=== PATIENT | female | born 1980 | race Caucasian/White ===

== ENCOUNTER → 2019-01-10 15:30 | Outpatient (CLI) | payer OTHER, SELFPAY ==
[2019-01-16 20:12] LABS: HPV Reflexed? NOT INDICATED
== END ==
PROVIDERS: Visit Provider Obstetrics & Gynecology
DX: Z12.4 Encounter for screening for malignant neoplasm of cervix (principal)
CPT/HCPCS: 88175; G0145

== ENCOUNTER 2019-11-27 09:01 | Inpatient (IN) | payer OTHER, SELFPAY ==
[2019-11-22 11:41] LABS: Hematocrit 43.3 % (37-47); Mean Corp Hgb Conc 32.3 g/dL (32-36); Mean Corpuscular Hgb 31.9 pg (27.0-32.0); Mean Corpuscular Volume 98.6 fL (81-99); Mean Platelet Vol. 10.4 fl (6.2-12.0); Platelet Count 272 K/mm3 (150-450); RBC Distribution Width CV 12.4 % (11.6-14.6); RBC Distribution Width SD 45.1 fl (35.1-43.9); Red Blood Count 4.39 M/mm3 (4.2-5.4); White Blood Count 4.8 K/mm3 (4.4-11.0)
[2019-11-22 11:49] LABS: Prothrombin Time (Protime)PT. 12.7 SECONDS (11.7-14.9)
[2019-11-22 11:50] LABS: Partial Thromboplast Time 25.6 Seconds (24.1-36.2)
[2019-11-22 12:03] LABS: Internal QC Validated? YES +Cl - CLEAR BKGD; Pregnancy, Serum, hCG Quali. NEGATIVE Negative
[2019-11-22 12:19] LABS: Creatinine, Serum 0.85 mg/dL (0.55-1.02); EST Glomerular Filtration Rate 79 mL/min (>60); Est Glom Filt Rate - Afr Amer 95 mL/min (>60); Thyroid Stim Hormone (TSH) 1.92 uIU/mL (0.358-3.74)
--- NOTE | 2019-11-26 12:54 | PCM.HP.BLA ---
History and Physical Date of Admission: 11/27/19 Surgical History and Physical Makenna Peacock, a 38 year old female 0 0 0 0 0, presents for VINNIE/BS on November 27, 2019 at 11:00. -- Large Symptomatic Uterine Fibroids -- Recent CT Scan with noted Enlarged lobulated uterus with fibroids. Reports she has had low pressure and discomfort for awhile, but thought it was due to her chronic constipation. Enlarged Lobulated Uterus with Fibroids which began 09/25/19. Makenna claims it started suddenly and has been present 09-25-19. It occurs all the time. It is located in the lower abdomen. Makenna characterizes it to be non-radiating. Makenna characterizes the quality lump noted. Severity is moderate and very concerned. Associated signs and symptoms are constipation. Associated signs and symptoms are dysmenorrhea. Additional comments are: CT scan at [facility] showed 8 and 9 cm uterine fibroids and multiple others. FIBROIDS. 4 MEASURED. 1)FUNDAL/RT=4.2 X 4.3 X 5.0CM. 2) AMAURY=8.4 X 5.7 X 6.7CM. 3) RT/CX=4.2 X 3.8 X 4.3CM. 4) ANT/LT=2.2 X 2.0 2.3. MEDICATIONS HISTORY: Patient is also takin. levothyroxine 50 mcg tablet, 1 qd ALLERGIES: NKDA Infections - never had chicken pox! Illnesses - no serious past illnesses Accidents - no injuries of consequence Hospitalizations - None Review of Systems: GENERAL - Denies fever, or chills SKIN - Denies skin changes EYES - Denies visual changes EARS - Denies difficulty hearing NOSE - Denies nasal congestion or bleeding MOUTH - Denies sore throat or difficulty swallowing NECK - Denies pain or swelling RESPIRATORY - Denies shortness of breath or wheezing CARDIOVASCULAR - Denies palpitations or chest pain GASTROINTESTINAL - Denies nausea, vomiting, diarrhea, constipation GENITOURINARY - Denies dysuria, frequency of urination, incontinence of urine MUSCULOSKELETAL - Denies joint or muscle pain NEUROLOGICAL - Denies localized numbness or weakness PSYCHIATRIC - Denies depression or anxiety ENDOCRINE - Denies heat or cold intolerance, weight loss or gain HEMATO-IMMUNOLOGIC - Denies excesive bleeding with cuts SOCIAL HISTORY: Alcohol Use - denies drinking Smoking - denies smoking Diet - no special diet Lifestyle - moderate stress lifestyle and Exercise - minimal Seat Belt Use - always Employer - [employer] Struct[employer] Job Description - Dealer Sales Rep Illicit Drug Use - denies use of street drugs Sexual Activity - Hours Worked - FT Spouse-Sig Other Name - Byran Spouse-Sig Other Occupation - [employer] Children Name(s) - 2 adopted children Control - NONE FAMILY HISTORY: Family history of Diabetes. MENSTRUAL HISTORY: LMP Known?- Approximate-Month KnownAmount/Duration - 4-5 days, Regularity - Regular, Frequency - 28 days, LMP - 10/29/19 PAST PREGNANCIES: Total Pregnancies - 0; Full Term Pregnancies - 0; Premature - 0; Abortions, Induced - 0; Abortions, Spontaneous - 0; Ectopics - 0; Multiple Births - 0; Living Children - 0 SURGICAL HISTORY: 1. NONE PHYSICAL EXAM BP- 112/72 Sitting, Right arm, regular cuff Weight- 117.0 lbs Height- 63 inch BMI:20.77 CONSTITUTIONAL - NAD, well nourished, and well developed SKIN - No rash, lesions, or ulcers HEENT - Normocephalic, PERRLA, EOMI NECK - no nodes, no nuchal rigidity and thyroid normal size and texture LYMPH NODES - Palpation of lymph nodes in neck, axilla and groins within normal limits LUNGS - CTA x2 without wheezes, crackles or rales CARDIAC - Regular rate and rhythm without rubs, murmurs, or gallops ABDOMEN - Without hepatosplenomegaly, distention, masses, rebound, or guarding; normal bowel sounds, no hernias EXTREMITIES - No edema or calf tenderness NEUROLOGICAL - Cranial nerves II-XII grossly intact PSYCHIATRIC - A and O to time, place, person, mood and affect External Genitial Vagina - non-tender without lesions Urethra/Urethral Meatus - non-tender Bladder - non-tender Vagina - vaginal tolliver are pink and moist without loss of rugae and no evidence of atropy Cervix - without cervical motion tenderness and has normal size and features without evident lesions Uterus - enlarged uterus 15 wks Adnexa - clear without massess or tenderness ASSESSMENT/PLAN: 1. Leiomyoma Of Uterus, Unspecified Large and symptomatic especially rectal pressure. Menses heavy. Discussed options for treatment and recommended proceeding with VINNIE/BS given large size. Discussed RBAs and all questions answered. Ovaries visualized on u/s as normal; CT and u/s both strongly suggest these are fibroids.
[2019-11-27] VITALS (11 sets, daily range): BP systolic 95–109; BP diastolic 59–86; PULSE 65–107; RESP 14–16; TEMP 36.4–37.3; O2SAT 93–100; BMI 20.6
--- NOTE | 2019-11-27 | HYST_PTH ---
PATIENT: DIPESH PHELPS LOC: [facility] U#:[id number] AGE/SX: 39/F ROOM: MS319 RE11/27/[address]: Dr. Guanaco Carbajal MD : 1980 BED: 1 DIS: 11/29/2019 SPEC #: [id number] RECD: 11/27/19 13:29 STATUS: ANDREINA REMejia #: [id number] STEWART: 11/27/19 00:[address]: Guanaco Carbajal DEPT: SURGICAL PATHOLOGY RECD BY: Driss Choudhary ENTERED: 11/27/19 13:29 SP TYPE: HYSTERECT OTHR DR: Dr. Gliberto Coronado MD Tissues: Uterus, NOS Procedures: Surgery Specimen Level V HEADER OPERATION: Total abdominal hysterectomy, bilateral salpingectomy PRE-OP DIAGNOSIS: Leiomyoma of uterus TISSUE SUBMITTED: Uterus and bilateral fallopian tubes MICROSCOPIC DIAGNOSIS Uterus and bilateral fallopian tubes, total abdominal hysterectomy and bilateral salpingectomy: Cervix - mild chronic cystic cervicitis. Endometrium - proliferative endometrium. Endometrial polyps - benign endometrial polyps with mildly disordered proliferative endometrium. Myometrium - intramural and subserosal leiomyomas (largest measuring 9 cm in greatest dimension). Bilateral fallopian tubes - no pathologic diagnosis. BEV:linda 11/28/19 MICROSCOPIC DESCRIPTION Slides are reviewed. GROSS DESCRIPTION Received in fixative is one container labeled with the patient's name and designated uterus and bilateral fallopian tubes. The specimen consists of a hysterectomy specimen consisting of uterus with cervix, attached bilateral fallopian tubes and two detached nodular masses. The uterus with cervix and detached nodular masses weighs in aggregate 381 gm. The uterus with cervix measures 10 x 10.5 x 6 cm. Multiple subserosal nodular masses are noted. Focal areas of defect with sutures are noted at the anterior and posterior surface most likely site of detached nodular masses, The masses measure 6.5 x 5 x 4 cm and 9 x 7 x 6 cm. The rest of the serosal surface is montalvo, glistening and unremarkable. The ectocervical mucosa is unremarkable. The external os is slit-like in contour. The endocervical canal measures 3.5 cm in length and the endocervical mucosa is montalvo, glistening and unremarkable. The triangular endometrial cavity measures 5 cm in length and up to 3 cm in width. Two endometrial polyps are noted, each measuring 1 cm in greatest dimension. The rest of the endometrium measures 0.2 cm in thickness. Sections of the uterine wall reveal multiple intramural and subserosal nodular masses. The largest subserosal nodular mass measures 4.5 cm in greatest dimension. Sections of the intramural, subserosal nodular masses and detached nodular masses reveal montalvo whorled cut surfaces without areas of hemorrhage, necrosis or cystic degeneration. The uninvolved uterine wall measures up to 2 cm in thickness. The right fallopian tube measures 7.5 cm in length and up to 1 cm in diameter. The fimbrial end is identified. Sections reveal unremarkable cut surfaces. The left fallopian tube is similar in appearance to right and measures 7 cm in length and 0.8 cm in diameter. Flat Finisher sections are submitted in 13 cassettes as follows: 1 - anterior cervix, 2 - posterior cervix, 3 & 4 - anterior uterine wall,?5 & 6 - posterior uterine wall, smaller nodular masses, 7 - endometrial polyps with uterine wall, 8??largest detached nodular mass, 9 - smaller nodular masses, 10 - detached second largest nodular mass, 11 - largest nodular mass, 12 - right fallopian tube, 13 - left fallopian tube. / BEV:linda 11/27/19 TC:1 CPT: 69028
[2019-11-27 09:42] LABS: Internal QC Validated? YES +Cl - CLEAR BKGD; Pregnancy, Urine Negative Negative
[2019-11-27] MEDS: Lactated Ringers 1,000 ML 100 ML IV ×2 (10:36→12:52)
--- NOTE | 2019-11-27 11:02 | PCM.OPRPT ---
Report of Operation Date of Procedure: 11/27/19 Pre-Operative Diagnosis: Large Symptomatic Uterine Fibroids Post-Operative Diagnosis: Large Symptomatic Uterine Fibroids Surgery/Procedure Performed:: Total Abdominal Hysterectomy and Bilateral Salpingectomy Description of Surgical Findings:: 10 cm uterus with multiple uterine fibroids present with the largest approximately 10 cm. Normal-appearing fallopian tubes and ovaries. technical education teacher: Ty Stewart Precepting Type of Anesthesia:: General - Endotracheal Anesthesiologist: Jony Ward Specimen's removed: Uterus and bilateral fallopian tubes Drains: Beckford to straight drain Estimated Blood Loss (mL): 100 cc Fluids Replaced: 1100 cc crystalloid Description of Procedure: Surgeon: Guanaco Carbajal MD, FACOG Indications: This is a 38-year-old patient who his been having problems with large symptomatic uterine fibroids. Given this the patient desires that we proceed with the above procedure. She has been counseled regarding the risk and indications of this procedure including the possibility of bleeding, infection, and injury to surrounding structures such as bowel bladder. All questions were answered. Procedure: Patient was taken to the operating room where after induction of general anesthesia she was prepped and draped in the usual sterile fashion. A Beckford catheter was placed. The abdomen was entered through a Pfannenstiel incision and peritoneal cavity was entered bluntly. The uterus was brought through the incision and multiple pedunculated fibroids were visualized. The largest 2 of these fibroids were ligated and removed with 0 Vicryl suture. [place] retractor was placed. Round ligaments were identified and ligated with 0 Vicryl suture. Mesosalpinx was ligated x2 with 0 Vicryl suture. Utero-ovarian vessels were ligated x2. A bladder flap was developed and progressive bites were then taken down on either side of the uterine cervix ligating each pedicle with 0 Vicryl suture. Final bites across the vaginal cuff incorporated the uterosacral ligaments into the vaginal cuff using 0 Vicryl suture and a single vrckah-ar-jwkys sutures was placed across the vaginal cuff. Vaginal cuff and pelvic sidewall pedicles were examined and noted to be hemostatic. Pelvis was copiously irrigated removing all clot. [place] retractor was removed and rectus abdominis muscles were reapproximated in the midline with interrupted 0 Vicryl suture. 0 PDS strata fix was used to close the fascia in a running fashion and subcutaneous tissue was copiously irrigated with saline solution before closing with 3-0 Vicryl suture. 3-0 Monocryl suture was then used in running fashion to reapproximate skin edges area and Steri-Strips and Mepilex dressing were placed across the incision. Patient tolerated the procedure well was taken to recovery room in satisfactory condition; sponge instrument and needle counts were all reportedly correct. Estimated blood loss for the case was 100 cc. Cefotan 2 g IV was given prior to beginning the operative procedure. There were no apparent complications of the surgery. Specimen to pathology was uterus and bilateral fallopian tubes. Grafts/Implants Used: None - Complications None - Admit VTE Documentation VTE Present on Admission: Yes VTE Mechan Device Prophylaxis: SCD's VTE Pharm Prophylaxis ordered?: Yes
[2019-11-27] MEDS: Cefotetan 2 GM in 0.9% NS 100 ML IV (11:03)
--- NOTE | 2019-11-27 11:06 | PCM.DC.AHY ---
<Guanaco Carbajal - Last Filed: 11/27/19 11:06> Discharge Diet: No Restrictions Discharge Activity: Return to Normal Activity - do what you feel comfortable, but do not over do it. You may climb stairs, just use caution and hold the railing., May Not Drive - for a few days or while taking narcotic pain medications., May Shower, May Take a Tub Bath May resume sexual activity in: 6 weeks - nothing in the vagina. Lifting Restrictions: 25 pounds for 6 weeks. Call your doctor if your incision/area has: Continuous Slow Oozing, Sudden Increased Bleeding, Increased Pain/ Swelling, Increased Redness, Foul Smelling Discharge Call your doctor if you observe: Fever of 101 or Higher, Inability to urinate, Inability to have a bowel movement, Using more than one pad per hour, - - Some vaginal bleeding may be noted for up to 4-8 weeks. Cleanse incision/area with: - - Let the soapy water run over your incision, rinse and pat dry. Additional Dressing/Incision Instructions:: The white strips (Steri Strips) on your incision will fall off on their own. Allergies/Adverse Reactions: Allergies No Known Allergies Allergy (Verified 11/17/19 10:03) Medications to take at Discharge Conglaplex 1 tab PO DAILY 11/17/19 Levothyroxine [Synthroid] 50 mcg PO DAILY 11/17/19 Multivitamin 1 ea PO DAILY 11/17/19 [place]-3 Fatty Acids [Fish Oil] 500 mg PO DAILY 11/17/19 Vitamin D3/Vitamin K2 (Mk4) [K2 Plus D3 Tablet] 1 ea PO DAILY 11/17/19 Zinc 50 mg PO DAILY 11/17/19 Docusate Sodium [Colace] 100 mg PO BID PRN PRN #60 cap 11/27/19 Oxycodone [Oxyir] 5 mg PO Q6H PRN PRN 7 Days #20 tab 11/27/19 The following prescriptions were given: Docusate Sodium [Colace] 100 mg PO BID PRN PRN #60 cap PRN Reason: Constipation Transmission Status: Received by [facility]/pharmacy #[id number] Oxycodone [Oxyir] 5 mg PO Q6H PRN PRN 7 Days #20 tab PRN Reason: Pain Score 6-10 Transmission Status: Received by [facility]/pharmacy #[id number] Primary Care Physician: Gilberto Coronado MD [Primary Care Provider] - Test Results: Test results from this visit will be discussed in further detail at your follow-up appointment, if applicable. Please Follow Up With: Guanaco Carbajal MD - [phone] When: in 2 weeks, please call to make an appointment. <Abril Avila - Last Filed: 11/29/19 08:40> Test Results: Test results from this visit will be discussed in further detail at your follow-up appointment, if applicable.
[2019-11-27] MEDS: Dextrose 5%-Lactated Ringers 1,000 ML 150 ML IV ×2 (15:55→23:04)
[2019-11-27] MEDS: HYDROmorphone 0.5 MG/0.5 ML SYRINGE IV ×2 (15:58→20:53)
[2019-11-27] MEDS: Ketorolac 30 MG/ML Syringe IV ×2 (17:53→23:21)
[2019-11-27] MEDS: 0.9% Saline Lock 10 ML Syringe IV ×2 (20:53→23:21)
[2019-11-27] MEDS: Acetaminophen 500 MG Tablet 1000 MG PO (23:23)
--- NOTE | 2019-11-27 23:38 | NURSING ---
pt had previously been to painful to get up to chair. assisted pt to stand at bedside and take some steps in room. pt júnior well. denied feeling dizzy or light headed
[2019-11-28 03:00] VITALS: BP 98/65; PULSE 103; RESP 18; TEMP 37.1; O2SAT 98
[2019-11-28] MEDS: oxyCODONE 5 MG Tablet PO (03:06)
[2019-11-28] MEDS: Ketorolac 30 MG/ML Syringe IV (06:08)
[2019-11-28] MEDS: 0.9% Saline Lock 10 ML Syringe IV (06:08)
[2019-11-28] MEDS: Levothyroxine 50 MCG Tablet PO (06:08)
[2019-11-28 06:13] LABS: Hematocrit 37.2 % (37-47); Hemoglobin 12.1 g/dL (12.0-15.0); Mean Corp Hgb Conc 32.5 g/dL (32-36); Mean Corpuscular Hgb 31.6 pg (27.0-32.0); Mean Corpuscular Volume 97.1 fL (81-99); Mean Platelet Vol. 10.3 fl (6.2-12.0); Platelet Count 239 K/mm3 (150-450); RBC Distribution Width SD 43.4 fl (35.1-43.9); Red Blood Count 3.83 M/mm3 (4.2-5.4); White Blood Count 11.9 K/mm3 (4.4-11.0)
--- NOTE | 2019-11-28 06:34 | PCM.PN.BLA ---
Progress Note POD#1 Subjective: Pain controlled with medications. Beckford out, had not voided yet (had been about 1 hr). Tolerating PO. Objective: Vital Signs Temp Pulse Resp BP Pulse Ox 11/28/19 03:00 98.8 F 103 H 18 98/65 98 11/27/19 20:59 98.2 F 98 16 109/76 96 Gen: NAD HEART: RRR LUNGS: CTAB ABDOMEN: soft, mildly tender, dressing c/d, BS present EXT: No edema Labs: Laboratory Results - last 24 hr 11/27/19 11/28/19 09:39 05:58 WBC 11.9 H RBC 3.83 L Hgb 12.1 Hct 37.2 MCV 97.1 MCH 31.6 MCHC 32.5 RDW Std Deviation 43.4 RDW Coeff of Melva 12.0 Plt Count 239 MPV 10.3 Urine Test Negative A/P: 39 yo POD#1 s/p total abdominal hysterectomy, bilateral salpingectomy for fibroid uterus. Complicated by: acute blood loss secondary to surgery, hypothyroidism. 1. Post operative -acute blood loss secondary to surgery, no need for iron -Pain controlled -Tolerating diet 2. Hypothyroidism -Continue synthroid Diet: Regular IVFs: HLIV DVT PPx: SCDs, ambulate, Lovenox qD Dispo: Home likely POD2 STROKE Vital Signs/Narrative: Vital Signs Temp Pulse Resp BP Pulse Ox 11/28/19 03:00 98.8 F 103 H 18 98/65 98
[2019-11-28 06:36] LABS: Creatinine, Serum 0.78 mg/dL (0.55-1.02); EST Glomerular Filtration Rate 87 mL/min (>60); Est Glom Filt Rate - Afr Amer 105 mL/min (>60); Estimated Creatinine Clearance 78.52 ml/min
[2019-11-28 07:20] VITALS: O2SAT 98
[2019-11-28 09:00] VITALS: BP 106/71; PULSE 81; RESP 18; TEMP 36.7; O2SAT 99
--- NOTE | 2019-11-28 10:45 | CASEMGMT ---
RN BRUNA Face to Face with patient for initial transition planning/care coordination assessment. RN CM introduced self and role at [facility]. Patient lying in bed, alert and oriented. Patient willing to participate in assessment and is able to answer all questions appropriately. Care providers, pharmacy, and demographics verified. Patient wishes to discharge home, denies need for home health at this time. Patient states she has no further needs or concerns at this time. CM to follow for discharge planning needs that may arise. PCP: Cliff Specialists: none Preferred Pharmacy: [facility] Insurance: [employer] Prescription Benefit: yes Living Will/HPOA: yes, Ortiz Peacock LNOK: Living Arrangements: Patient lives with in a 2 story home with access to bed and bath on first floor. Patient was independent at home prior to surgery. Transportation: self, DME/HHC: patient denies DME or previous HHC. Disposition Plan: Patient to discharge home with family support and follow-up plans in place. Holley LOPEZ, RN, CM
[2019-11-28] MEDS: Enoxaparin 40 MG/0.4 ML Syringe SC (12:05)
[2019-11-28] MEDS: Ketorolac 10 MG Tablet PO ×2 (12:06→18:33)
[2019-11-28 15:00] VITALS: BP 101/55; PULSE 88; RESP 18; TEMP 37.3; O2SAT 98
[2019-11-28 21:29] VITALS: BP 94/62; PULSE 86; RESP 17; TEMP 37.2; O2SAT 97
[2019-11-29 02:28] VITALS: BP 92/60; PULSE 69; RESP 16; TEMP 37.1; O2SAT 96
[2019-11-29] MEDS: Levothyroxine 50 MCG Tablet PO (05:37)
[2019-11-29] MEDS: Ketorolac 10 MG Tablet PO ×2 (05:37)
[2019-11-29 07:34] VITALS: O2SAT 95
--- NOTE | 2019-11-29 08:13 | PCM.PN.BLA ---
Progress Note POD#2 Subjective: Pain control improved. Tolerating PO. Ambulating. Objective: Vital Signs Temp Pulse Resp BP Pulse Ox 11/29/19 07:34 95 11/29/19 02:28 98.8 F 69 16 92/60 96 11/28/19 21:29 98.9 F 86 17 94/62 97 Gen: NAD HEART: RRR LUNGS: CTAB ABDOMEN: soft, mildly tender, dressing c/d, BS present EXT: No edema Labs: Laboratory Results 11/27/19 11/28/19 09:39 05:58 WBC 11.9 H RBC 3.83 L Hgb 12.1 Hct 37.2 MCV 97.1 MCH 31.6 MCHC 32.5 RDW Std Deviation 43.4 RDW Coeff of Melva 12.0 Plt Count 239 MPV 10.3 Urine Test Negative A/P: 39 yo POD#2 s/p total abdominal hysterectomy, bilateral salpingectomy for fibroid uterus. Complicated by: acute blood loss secondary to surgery, hypothyroidism. 1. Post operative -acute blood loss secondary to surgery, no need for iron -Pain controlled -Tolerating diet -Voiding spontaneously 2. Hypothyroidism -Continue synthroid Diet: Regular IVFs: HLIV DVT PPx: SCDs, ambulate, Lovenox qD Dispo: Home today STROKE Vital Signs/Narrative: Vital Signs Pulse Ox 11/29/19 07:34 95
[2019-11-29 08:40] VITALS: BP 99/68; PULSE 72; RESP 18; TEMP 36.7; O2SAT 98
[2019-11-29] MEDS: Enoxaparin 40 MG/0.4 ML Syringe SC (08:53)
== END 2019-11-29 09:43 | disposition home or self-care (01) | DRG 742 ==
LOC: ACINP 09:01 → MS3 11:27
PROVIDERS: Anesthesiology; Admitting Provider Obstetrics & Gynecology; PCP Internal Medicine; Referring Provider Obstetrics & Gynecology; Visit Provider Obstetrics & Gynecology
PROC: 0UT90ZZ Resection of Uterus, Open Approach (ICD-10-PCS; CPT 58150; principal; 2019-11-27 10:50)
DX: D25.2 Subserosal leiomyoma of uterus (principal); D62 Acute posthemorrhagic anemia; N72 Inflammatory disease of cervix uteri; N84.0 Polyp of corpus uteri; E03.9 Hypothyroidism, unspecified; F19.90 Other psychoactive substance use, unspecified, uncomplicated; F17.200 Nicotine dependence, unspecified, uncomplicated; Z83.3 Family history of diabetes mellitus
CPT/HCPCS: 36415; 81025; 82565; 84443; 84703; 85027; 85610; 85730; 86850; 86900; 86901; 87635; 88307; 99251; C9803; J7120; A4216; G0463; J2405; U0003

== ENCOUNTER → 2022-06-30 | Outpatient (CLI) | payer OTHER, SELFPAY ==
--- NOTE | 2022-06-30 14:46 | BI_ITS ---
MAMMOGRAPHY - BILATERAL SCREENING REASON FOR EXAM: Female, 41 years old. Routine annual screening examination. PERTINENT HISTORY: Non-contributory. TECHNIQUE: Digital bilateral breast joycelyn (3D mammographic acquisition) in the CC and MLO projections. 2-D mediolateral oblique (MLO) and craniocaudad (CC) views of both breasts were obtained. CAD: Full Field Digital Mammography with Computer Added Detection was performed. COMPARISON: None. Baseline examination. FINDINGS: Breast Composition: The breasts are extremely dense, which lowers the sensitivity of mammography. There are no dominant masses or suspicious calcifications. No other significant abnormalities are identified. BI/SCRN MAMM (CAD)W/JOYCELYN BILAT IMPRESSION: Negative screening mammogram. Yearly followup mammogram recommended. (A) ASSESSMENT CATEGORY: BIRADS Category 1: Negative. A letter regarding these results will be sent to the patient by the facility within 30 days. Approximately 10% of breast cancers are not detected by mammography. A normal mammogram should not delay biopsy of a clinically suspicious abnormality. Electronically Signed: Pedro Mike MD at 17:15 EDT ,
== END | disposition home or self-care (01) ==
LOC: OPBI 14:44
PROVIDERS: PCP Internal Medicine
DX: Z12.31 Encounter for screening mammogram for malignant neoplasm of breast (principal)
CPT/HCPCS: 77063; 77067